=== PATIENT | female | born 1995 ===

== ENCOUNTER 2016-12-30 22:10 | Emergency (ER) | payer MEDICAID ==
[2016-12-30 22:48] VITALS: BP 123/74; PULSE 68; RESP 15; TEMP 97.8; O2SAT 100
[2016-12-30] MEDS ORDERED: TDAP Vaccine 0.5 mL Syr IM ONE (23:32)
--- NOTE | 2016-12-30 23:32 | ED PDOC ---
HPI: Skin/Bite Injury Time Seen by Provider: 12/30/16 23:29 Chief Complaint (Nursing): Abnormal Skin Integrity Chief Complaint (Provider): laceration History Per: Patient History/Exam Limitations: no limitations Additional Complaint(s): 21yo F in ED for eval of laceration sustained to right hand today after injuring with metal object at work tetanus is not uptodate. admts to pain and persistent bleeding. no dec ROM no dec strength. right hand dominant. Past Medical History Reviewed: Historical Data, Nursing Documentation, Vital Signs Vital Signs: Last Vital Signs Temp 97.8 F 12/30/16 22:44 Pulse 68 12/30/16 22:44 Resp 15 12/30/16 22:44 BP 123/74 12/30/16 22:44 Pulse Ox 100 12/30/16 22:44 - Medical History PMH: No Chronic Diseases - Family History Family History: States: No Known Family Hx - Home Medications Home Medications: Ambulatory Orders Medication Instructions Recorded Cephalexin [cephalexin] 500 mg PO BID #20 cap 12/30/16 - Allergies Allergies/Adverse Reactions: Allergies Allergy/AdvReac Type Severity Reaction Status Date / Time No Known Allergies Allergy Verified 12/30/16 22:48 Review of Systems ROS Statement: Except As Marked, All Systems Reviewed And Found Negative Skin: Positive for: Rash Physical Exam - Reviewed Nursing Documentation Reviewed: Yes Vital Signs Reviewed: Yes - Physical Exam Appears: Positive for: Well, Non-toxic, No Acute Distress Skin: Positive for: Normal Color, Warm, DRY Cardiovascular/Chest: Positive for: Regular Rate, Rhythm Respiratory: Positive for: CNT, Normal Breath Sounds Extremity: Positive for: Other (right hand: at webspace btw 1st and 2nd digit puncture wound with active bleeidng no swellingFROM of digits. nuerovasc intact) Neurologic/Psych: Positive for: Alert, Oriented - ECG O2 Sat by Pulse Oximetry: 100 - Progress ED Course And Treament: laceration repair. Medical Decision Making Medical Decision Making: pt will be d/c with [facility], advised to keep wound clean and dry given splint and advised to have pmd or hand specialist f.u in 5-6 days. Disposition - Clinical Impression Clinical Impression: Laceration - Patient ED Disposition Is Patient to be Admitted: No Counseled Patient/Family Regarding: Diagnosis, Need For Followup, Rx Given - Disposition Disposition: Routine/Home Disposition Time: 23:37 Condition: GOOD Prescriptions: Cephalexin [cephalexin] 500 mg PO BID #20 cap Instructions: Care For Your Stitches (ED), Laceration (ED) Procedure: Wound Repair - Time Performed Time Performed: 23:34 - Time Out Time Out: Side verified, Site verified, Patient ID confirmed, Sterile procedures obs. - Consent Obtained Consent obtained: Written - Performed by Performed by: Mid-level Provider - Indications Indication(s):: Laceration - Location Shape:: Other (puncture wound to right hand btw 1and 2 digit webspace) Dimensions Length cm: 1 Depth:: Epidermis - Anesthetic Technique Anesthetic Technique: Local Local/Regional Anesthetic:: Lidocaine 1% - Debris Debris:: None - Irrigated Irrigated with ml of normal saline: 250 with betadine mix - Complexity Complexity:: Simple (one layer) - Wound repair method Sutures:: # (4), Size (4-0), Type (proline), Technique (simple interrupted) - Patient tolerated procedure Patient Tolerated Procedure:: Well (given splint.)
== END 2016-12-30 23:53 | disposition home or self-care (01) ==
LOC: H.ER 22:10
DX: S61.411A Laceration without foreign body of right hand, initial encounter (principal); W45.8XXA Other foreign body or object entering through skin, initial encounter; Y92.9 Unspecified place or not applicable; Y99.0 Civilian activity done for income or pay; Z23 Encounter for immunization

== ENCOUNTER 2018-05-24 08:53 | Emergency (ER) | payer MEDICAID ==
[2018-05-24 09:03] VITALS: BMI 31.1
[2018-05-24] MEDS ORDERED: Sodium Chloride 0.9% 1,000 ML IV STA (09:18)
--- NOTE | 2018-05-24 09:41 | ED PDOC ---
HPI:Nausea, Vomiting, Diarrhea Time Seen by Provider: 05/24/18 09:06 Chief Complaint (Nursing): Abdominal Pain Chief Complaint (Provider): nausea History Per: Patient History/Exam Limitations: no limitations Onset/Duration Of Symptoms: Hrs (3), Sudden Onset Current Symptoms Are (Timing): Still Present Quality Of Discomfort: Cramping Associated Symptoms: Chills, Nausea, Diarrhea, Loss Of Appetite. denies: Vomiting Exacerbating Factors: None Alleviating Factors: None Last Bowel Movement: Today Additional Complaint(s): 22yo female awoke this morning with nausea, one episode nonbloody diarrhea, crampy diffuse abdominal pain and malaise. Denies fever but feels chills. Minimal headache, no sore throat. Ate shishkabobs last night. No sick contacts. Urination normal. LMP Apr 30. Past Medical History Reviewed: Historical Data, Nursing Documentation, Vital Signs - Medical History PMH: No Chronic Diseases - Surgical History Surgical History: No Surg Hx - Family History Family History: States: Unknown Family Hx - Living Arrangements Living Arrangements: With Family - Home Medications Home Medications: Ambulatory Orders Medication Instructions Recorded Cephalexin [cephalexin] 500 mg PO BID #20 cap 12/30/16 Dicyclomine [Bentyl] 10 mg PO Q6 PRN #10 cap 05/24/18 Ondansetron ODT [Zofran ODT] 4 mg PO Q6 PRN #10 odt 05/24/18 RX: Ibuprofen [Motrin Tab] 600 mg PO Q6 PRN #15 tab 05/24/18 - Allergies Allergies/Adverse Reactions: Allergies Allergy/AdvReac Type Severity Reaction Status Date / Time No Known Allergies Allergy Verified 12/30/16 22:48 Review of Systems ROS Statement: Except As Marked, All Systems Reviewed And Found Negative Constitutional: Positive for: Chills. Negative for: Fever ENT: Negative for: Nose Discharge, Throat Pain Cardiovascular: Negative for: Chest Pain, Palpitations Respiratory: Negative for: Cough, Shortness of Breath Gastrointestinal: Positive for: Nausea, Abdominal Pain, Diarrhea. Negative for: Vomiting Genitourinary Female: Negative for: Dysuria Musculoskeletal: Negative for: Neck Pain, Back Pain Skin: Negative for: Rash, Lesions Neurological: Negative for: Weakness, Numbness, Change in Speech, Dizziness Psych: Negative for: Depression Physical Exam - Reviewed Nursing Documentation Reviewed: Yes Vital Signs Reviewed: Yes - Physical Exam Appears: Positive for: Non-toxic, No Acute Distress Head Exam: Positive for: ATRAUMATIC, NORMAL INSPECTION, NORMOCEPHALIC Skin: Positive for: Normal Color, Warm, DRY Eye Exam: Positive for: EOMI, Normal appearance, PERRL ENT: Positive for: Normal ENT Inspection Neck: Positive for: Normal, Painless ROM Cardiovascular/Chest: Positive for: Regular Rate, Rhythm Respiratory: Positive for: CNT, Normal Breath Sounds Gastrointestinal/Abdominal: Positive for: Bowel Sounds (hyperactive), Soft. Negative for: Tenderness, Guarding Back: Positive for: Normal Inspection Extremity: Positive for: Normal ROM. Negative for: Tenderness, Deformity Neurologic/Psych: Positive for: Alert, Oriented. Negative for: Motor/Sensory Deficits - Laboratory Results Result Diagrams: 05/24/18 10:00 05/24/18 10:00 Medical Decision Making Medical Decision Making: nonfocal abdominal exam without tenderness check labs, initiate IVF bolus, bentyl, toradol and antiemetic re-eval for improvement labs reviewed CT abd pelv obtained, report reviewed Flu neg Improved over course ED stay. Tolerated PO Abd nontender on re-eval. Disposition - Clinical Impression Clinical Impression: Viral illness, Enteritis - Patient ED Disposition Is Patient to be Admitted: No Counseled Patient/Family Regarding: Studies Performed, Diagnosis, Need For Followup, Rx Given - Disposition Referrals: Rohith Lucio MD [Medical Doctor] - Disposition: Routine/Home Disposition Time: 17:00 Condition: STABLE Additional Instructions: Return to ER for any worse or new symptoms, weakness, fever, pain or any concern. Prescriptions: Dicyclomine [Bentyl] 10 mg PO Q6 PRN #10 cap PRN Reason: Gi Distress RX: Ibuprofen [Motrin Tab] 600 mg PO Q6 PRN #15 tab PRN Reason: Pain, Moderate (4-7) Ondansetron ODT [Zofran ODT] 4 mg PO Q6 PRN #10 odt PRN Reason: Nausea/Vomiting Instructions: Diarrhea in Adolescents and Adults, Viral Syndrome (DC) Forms: [employer] (German)
[2018-05-24 10:11] LABS: BASO % 0.1 % (0.0-2.0); EOS % 0.1 % (0.0-4.0); HEMOGLOBIN 13.2 g/dL (12.0-16.0); LYMPH # 0.5 K/uL (1.0-4.3); LYMPH % 7.1 % (20.0-40.0); MEAN CELL VOLUME 88.7 fl (81.0-99.0); MEAN CORPUSCULAR HEMOGLOBIN 28.6 pg (27.0-31.0); MEAN CORPUSCULAR HGB CONC 32.2 g/dL (33.0-37.0); MEAN PLATELET VOLUME 8.2 fl (7.2-11.7); MONO # 0.2 K/uL (0.0-0.8); MONO % 2.7 % (0.0-10.0); NEUT # 6.8 K/uL (1.8-7.0); NRBC % 0.3 % (0.0-0.0); PLATELET COUNT 321 K/uL (130-400); RBC 4.63 Mil/uL (3.80-5.20); RED CELL DISTRIBUTION WIDTH 14.3 % (11.5-14.5); WHITE BLOOD COUNT 7.5 K/uL (4.8-10.8)
[2018-05-24 10:23] LABS: BLOOD UREA NITROGEN 15 mg/dl (7-17); CALCIUM 8.4 mg/dL (8.4-10.2); GFR NON-AFRICAN AMERICAN > 60; LIPASE 87 U/L (23-300)
[2018-05-24 10:24] LABS: ALB/GLOB RATIO 1.2 (1.0-2.1); ALBUMIN 4.3 g/dL (3.5-5.0); ALT/SGPT 35 U/L (9-52); AST/SGOT 38 U/L (14-36)
[2018-05-24 13:32] LABS: EOSINOPHIL 1 % (0-7); LYMPHOCYTE 6 % (20-50); MONOCYTE 2 % (0-10); NEUTROPHIL 90 % (42-75); OVALOCYTES SLIGHT; PLATELET ESTIMATE NORMAL (NORMAL); REACTIVE LYMPHOCYTES 1 % (0-0); SCHISTOCYTES SLIGHT; TOTAL CELLS COUNTED 100
[2018-05-24] MEDS ORDERED: Sodium Chloride 0.9% 50 ML IV ONE (16:11)
[2018-05-24] MEDS ORDERED: Iohexol 300 100 ML IJ ONE (16:11)
--- NOTE | 2018-05-24 17:07 | CT ---
Date of service: 05/24/2018 PROCEDURE: CT Abdomen and Pelvis with contrast HISTORY: Lower abdominal pain. Negative test (concurrent with this examination). COMPARISON: None. TECHNIQUE: Intravenous contrast dose: 95 cc Omnipaque 300. Radiation dose: Total exam DLP = 683.03 mGy-cm. This CT exam was performed using one or more of the following dose reduction techniques: Automated exposure control, adjustment of the mA and/or kV according to patient size, and/or use of iterative reconstruction technique. FINDINGS: LOWER THORAX: Unremarkable. LIVER: Unremarkable. No gross lesion or ductal dilatation. GALLBLADDER AND BILE DUCTS: Unremarkable. PANCREAS: Unremarkable. No gross lesion or ductal dilatation. SPLEEN: Unremarkable. ADRENALS: Unremarkable. No mass. KIDNEYS AND URETERS: Unremarkable. No hydronephrosis. No solid mass. VASCULATURE: Unremarkable. No aortic aneurysm. No atherosclerotic calcification or mural plaque present. BOWEL: Nondilated loops of small bowel with an edematous appearance to bowel wall. These loops of bowel are fluid filled. Findings are likely enteritis. There is no mechanical obstruction identified. APPENDIX: A normal appendix is visualized in it's entirety. PERITONEUM: Trace free fluid identified in the pelvis/cul de sac. No free air. LYMPH NODES: Unremarkable. No enlarged lymph nodes. BLADDER: Unremarkable. REPRODUCTIVE: Left adnexal cyst 2.7 cm. BONES: No acute fracture. OTHER FINDINGS: None. IMPRESSION: Findings consistent with mild enteritis without mechanical obstruction. Left adnexal cyst. Trace free fluid in the cul-de-sac. Unremarkable uterus and right adnexa.
[2018-05-24 19:43] VITALS: BP 124/80; PULSE 70; RESP 18; O2SAT 100
== END 2018-05-24 19:44 | disposition home or self-care (01) ==
LOC: H.ER 08:53
DX: B34.9 Viral infection, unspecified (principal); K52.9 Noninfective gastroenteritis and colitis, unspecified
CPT/HCPCS: 74177; 80053; 81025; 83690; 85025; 87804; 96374; 99284; J1885; J2405; J7030; Q9967